=== PATIENT | female | born 1950 | race African-American/Black ===

== ENCOUNTER 2018-11-10 08:46 | Inpatient (IN) | payer OTHER ==
[2018-11-09 17:10] VITALS: BMI 43.0
[~2018-11-10] VITALS: Ht 162.6 cm; Wt 111.2 kg
[2018-11-10] VITALS (16 sets, daily range): BP systolic 123–155; BP diastolic 68–85; PULSE 83–102; RESP 13–24; Ht 162.6 cm; Wt 111.2 kg
[~2018-11-10 08:46] MED LIST: CEFAZOLIN 2 GM/50 ML (PMX) 50 ML IVPB ONE; DESFLURANE 15 MIN ONE; DEXAMETHASONE 10 MG/ML 1 ML INJ ONE; SOD CHLORIDE 0.9% 1,000 ML IV SCH
[2018-11-10] MEDS ORDERED: CALC1TAB79 PO (09:22)
[2018-11-10] MEDS ORDERED: ZONI100C48 PO (09:22)
[2018-11-10] MEDS ORDERED: OMEP20CA16 PO (09:22)
[2018-11-10] MEDS ORDERED: LEVE500T8 PO (09:23)
[2018-11-10] MEDS ORDERED: GABA300C16 PO (09:23)
[2018-11-10] MEDS ORDERED: QUET25TA33 PO (09:24)
[2018-11-10] MEDS ORDERED: BACL20TA PO (09:24)
[2018-11-10] MEDS ORDERED: ISOSULFAN BLUE 1% 5 ML INJ SC ONE (09:42)
--- NOTE | 2018-11-10 10:31 | PREAC ---
Date/Time of Note Date/Time of Note DATE: 11/10/18 TIME: 10:29 Anesthesia Eval and Record Evaluation Time Pre-Procedure Interview DATE: 11/10/18 TIME: 10:29 Age 68 Sex female NPO: 8 hrs Preoperative diagnosis Right Breast Cancer Planned procedure Right Breast Mastectomy Past Medical History Past Medical History: Includes Endo: Diabetes (borderline) Neuro: Seizure disorder GI: Obesity Surgery & Anesthesia Issues No known issue Meds Anticoagulation: No Beta Vivien within 24 hr: No Reason Beta Vivien not given: Pt. not on B-Vivien Reported Medications Quetiapine Fumarate* (Quetiapine Fumarate*) 25 Mg Tablet, 25 MG PO HS, TAB 11/10/18 Baclofen* (Baclofen*) 20 Mg Tablet, 20 MG PO Q8 PRN for INFLAMATION, TAB 11/10/18 Levetiracetam* (Levetiracetam*) 500 Mg Tablet, 500 MG PO BID, TAB 11/10/18 Gabapentin* (Gabapentin*) 300 Mg Capsule, 300 MG PO TID, #90 CAP 11/10/18 Omeprazole* (Omeprazole*) 20 Mg Capsule.dr, 20 MG PO DAILY, #30 CAP 11/10/18 Zonisamide* (Zonisamide*) 100 Mg Capsule, 100 MG PO DAILY, CAP 11/10/18 Calcium Carbonate/Vitamin D3 (Oysco 500+D Tablet) 1 Each Tablet, 1 EACH PO BID, TAB 11/10/18 Current Medications Sodium Chloride 1,000 ml @ 75 mls/hr [id number] IV ; Start 11/10/18 at 08:00; Stop 11/10/18 at 21:19 Meds reviewed: Yes Allergies Coded Allergies: Penicillins (Verified Allergy, Unknown, ITCHING, SWELLING OF TONGUE, 11/10/18) aspirin (Unverified Adverse Reaction, Unknown, STOMACH PAIN, 11/10/18) Allergies Reviewed: Yes Labs/Studies Labs Reviewed: Reviewed by anesthesiologist test: N/A Pre-procedure Exam Last vitals Vital Signs Date Temp Pulse Resp B/P (MAP) Pulse Ox O2 O2 Flow FiO2 Time Delivery Rate 11/10/18 97.3 83 18 136/74 94 Room Air 09:46 (94) Airway: Adequate mouth opening, Adequate thyromental dist Mallampati: Mallampati III Teeth: Normal Lung: Normal Heart: Normal ASA Physical Status ASA physical status: 3 Emergency: None Planned Anesthetic General/MAC: ETT Planned Pain Management Parenteral pain med Pre-operative Attestations Prior to commencing anesthesia and surgery, the patient was re-evaluated, there was verification of: *The patient's identity *The results of appropriate recent lab work and preoperative vital signs *The above evaluation not changing prior to induction *Anesthetic plan, risk benefits, alternative and complications discussed with patient/family; questions answered; patient/family understands, accepts and wishes to proceed. YORDAN SAHU MD Nov 10, 2018 10:30
[2018-11-10] MEDS ORDERED: PROPOFOL 20 ML ONE (10:33)
[2018-11-10] MEDS ORDERED: ROCURONIUM 50 MG INJ ONE (10:33)
[2018-11-10] MEDS ORDERED: CEFAZOLIN 1 GM INJ ONE (10:33)
[2018-11-10] MEDS ORDERED: MIDAZOLAM 1 MG/ML 2 ML INJ ONE (10:33)
[2018-11-10] MEDS ORDERED: ONDANSETRON 4 MG INJ ONE (10:42)
[2018-11-10] MEDS ORDERED: METOCLOPRAMIDE 10 MG INJ ONE (10:42)
[2018-11-10] MEDS ORDERED: DEXAMETHASONE 4 MG/ML 5 ML INJ ONE (10:42)
[2018-11-10] MEDS ORDERED: DIPHENHYDRAMINE 50 MG INJ IV PRN (11:00)
[2018-11-10] MEDS ORDERED: LABETALOL HCL 20MG INJ IV PRN (11:00)
[2018-11-10] MEDS ORDERED: ONDANSETRON 4 MG INJ IV PRN ×2 (11:00→12:00)
[2018-11-10] MEDS ORDERED: FENTAnyl 50 MCG/ML VIAL IV PRN ×3 (11:00)
[2018-11-10] MEDS ORDERED: OXYCODONE/ACETAMINOPHEN (5/325) TAB PO PRN ×2 (11:00)
[2018-11-10] MEDS ORDERED: MEPERIDINE 25 MG INJ IV PRN (11:00)
[2018-11-10] MEDS ORDERED: EPHEDrine SULFATE 50 MG/5 ML SYG IV PRN (11:00)
[2018-11-10] MEDS ORDERED: hydrALAzine 20 MG INJ IV PRN (11:00)
[2018-11-10] MEDS ORDERED: HYDROmorphONE 1 MG/5 ML IV SYRINGE IV PRN ×3 (11:00)
[2018-11-10] MEDS ORDERED: METOCLOPRAMIDE 10 MG INJ IV PRN (11:00)
--- NOTE | 2018-11-10 11:36 | SIPON ---
Date/Time of Note Date/Time of Note DATE: 11/10/18 TIME: 11:35 Operative Report Preoperative Diagnosis Recurrent cancer right breast Postoperative Diagnosis Same Operation/Procedure Performed Right modified radical mastectomy Surgeon see signature line bilingual medical assistant Dr Gann Second assist: LYNNE LOU MD Anesthesia: general Estimated blood loss: 10 - 50 ml's Transfusion Required none Specimen Right breast and axillary contents Grafts/Implants none Complications none MATEUS LANZA MD Nov 10, 2018 11:36
[2018-11-10] MEDS ORDERED: NEOSTIGMINE 3 MG/3 ML SYRINGE ONE (11:39)
[2018-11-10] MEDS ORDERED: GLYCOPYRROLATE 0.4 MG INJ ONE (11:39)
[2018-11-10] MEDS ORDERED: SUGAMMADEX SODIUM 200 MG/2 ML VIAL IV ONE (11:47)
--- NOTE | 2018-11-10 11:47 | OPR ---
DATE OF OPERATION: 11/10/2018 PREOPERATIVE DIAGNOSIS: Recurrent right breast cancer with open wound, nonhealing. POSTOPERATIVE DIAGNOSIS: Recurrent right breast cancer with open wound, nonhealing. OPERATION PERFORMED: Right modified radical mastectomy. ANESTHESIA: General. ANESTHESIOLOGIST: Jimmy Haq MD SURGEON: Indra Milton MD MACHINE SPRAYER: José Miguel Gann MD; Saadia Sheehan MD INDICATIONS FOR PROCEDURE: The patient is a 68-year-old female, first diagnosed with breast cancer in 2001 at another institution. At that time, she was treated with breast conservation surgery and radiation. She developed a recurrence slightly over a year ago and again was treated at another institution by another surgeon. For reasons that are unclear, she was treated with partial mastectomy and developed a nonhealing wound. She then saw Dr. Milton for a second opinion and I informed her that due to the fact that she had recurrent cancer in the same breast that she would best be treated with mastectomy, based on the fact that she has an open wound as well. The patient was anxious to proceed in this fashion. She consented and was scheduled for surgery. DESCRIPTION OF PROCEDURE: The patient was brought to the operating theater, placed under general anesthesia. The right breast and axillary region was prepped and draped in usual sterile fashion. Planned elliptical incision was made widely around the nipple areolar complex including the open wound. Subcutaneous tissue was dissected with cautery. The skin edges were elevated with Allis Lavaca clamps and skin flaps were created in sequential fashion using cautery, first superiorly to the clavicle, then medially to the sternal border, inferiorly to the inframammary fold and laterally until the latissimus dorsi muscle was identified throughout its course. Mastectomy then took place from medial to lateral using cautery. At the border of the pectoralis major muscle, the pectoralis minor muscle was identified. There was significant scar tissue due to the previous surgery. It was meticulously dissected using cautery. It was unclear if there were residual lymph nodes in this tissue but the entire tail of the axilla was resected en bloc with the specimen. Specimen was then transected, oriented, and sent for permanent pathologic analysis. The wound was irrigated. Residual bleeding was controlled with cautery. Two #10 flat Everett-Gonzalez drains were brought through the right mid axillary line and cut to size. One was laid over the pectoralis major muscle, the other was cut to size and laid within the axilla. Both drains were secured in place with a 2-0 nylon suture. The skin was then reapproximated with a deep dermal layer of 4-0 Vicryl sutures, followed by final skin approximation with skin ana. The patient tolerated the procedure well. The estimated blood loss was approximately 50 mL. There were no complications and the patient was transported in stable condition to the recovery room where circumferential compression dressing was applied. Dictated By: INDRA LEARY/IRLANDA Conf#: [id number] DID#: [id number] CHRIS
--- NOTE | 2018-11-10 11:59 | PAC ---
Date/Time of Note Date/Time of Note DATE: 11/10/18 TIME: 11:59 Post-Anesthesia Notes Post-Anesthesia Note Last documented vital signs Vital Signs Date Temp Pulse Resp B/P (MAP) Pulse Ox O2 O2 Flow FiO2 Time Delivery Rate 11/10/18 97.3 83 18 136/74 94 Room Air 12:16 (94) Activity: WNL Respiratory function: WNL Cardiovascular function: WNL Mental status: Baseline Pain reasonably controlled: Yes Hydration appropriate: Yes Nausea/Vomiting absent: Yes YORDAN SAHU MD Nov 10, 2018 11:59
[2018-11-10] MEDS ORDERED: D5W-0.45 NACL + KCL 20 MEQ 1,000 ML IV SCH (12:00)
[2018-11-10] MEDS ORDERED: morphine SULFATE/PF (2 MG/2 ML) SYG IV PRN (12:00)
[2018-11-10] MEDS ORDERED: ACETAMINOPHEN 1000MG/100ML IV 100 ML IVPB PRN (12:00)
--- NOTE | 2018-11-10 12:42 | HP ---
Date/Time of Note Date/Time of Note DATE: 11/10/18 TIME: 12:42 Assessment/Plan VTE Prophylaxis Risk score (from Nsg)>0 risk: 4 SCD applied (from Nsg): Yes Lines/Catheters IV Catheter Type (from Nrsg): Peripheral IV HPI/ROS Admit Date/Time Admit Date/Time Nov 10, 2018 at 11:38 PMH/Family/Social Past Medical History Medications Current Medications Hydromorphone HCl (Dilaudid) 0.2 mg PACU PRN IV MILD PAIN LEVEL 1-3; Start 11/10/18 at 11:00; Stop 11/10/18 at 15:00 Hydromorphone HCl (Dilaudid) 0.4 mg PACU PRN IV MODERATE PAIN LEVEL 4-6; Start 11/10/18 at 11:00; Stop 11/10/18 at 15:00 Hydromorphone HCl (Dilaudid) 0.6 mg PACU PRN IV SEVERE PAIN LEVEL 7-10; Start 11/10/18 at 11:00; Stop 11/10/18 at 15:00 Fentanyl (Sublimaze) 25 mcg PACU ORDER PRN IV MILD PAIN LEVEL 1-3; Start 11/10/18 at 11:00; Stop 11/10/18 at 15:00 Fentanyl (Sublimaze) 50 mcg PACU ORDER PRN IV MODERATE PAIN LEVEL 4-6 Last administered on 11/10/18at 12:09; Admin Dose 50 MCG; Start 11/10/18 at 11:00; Stop 11/10/18 at 15:00 Fentanyl (Sublimaze) 75 mcg PACU ORDER PRN IV SEVERE PAIN LEVEL 7-10; Start 11/10/18 at 11:00; Stop 11/10/18 at 15:00 Oxycodone/ Acetaminophen (Percocet (5/ 325)) 1 tab PACU ORDER PRN PO PAIN LEVEL 1-5; Start 11/10/18 at 11:00; Stop 11/10/18 at 15:00 Oxycodone/ Acetaminophen (Percocet (5/ 325)) 2 tab PACU ORDER PRN PO PAIN LEVEL 6-10; Start 11/10/18 at 11:00; Stop 11/10/18 at 15:00 Ondansetron HCl (Zofran Inj) 4 mg PACU ORDER PRN IV NAUSEA AND/OR VOMITING Last administered on 11/10/18at 12:10; Admin Dose 4 MG; Start 11/10/18 at 11:00; Stop 11/10/18 at 15:00 Metoclopramide HCl (Reglan) 10 mg PACU ORDER PRN IV NAUSEA AND/OR VOMITING; Start 11/10/18 at 11:00; Stop 11/10/18 at 15:00 Labetalol HCl (Labetalol) 5 mg PACU ORDER PRN IV ELEVATED BLOOD PRESSURE; Start 11/10/18 at 11:00; Stop 11/10/18 at 15:00 Hydralazine HCl (Apresoline) 5 mg PACU ORDER PRN IV ELEVATED BLOOD PRESSURE; Start 11/10/18 at 11:00; Stop 11/10/18 at 15:00 Ephedrine Sulfate 5 mg PACU ORDER PRN IV BLOOD PRESSURE SUPPORT; Start 11/10/18 at 11:00; Stop 11/10/18 at 15:00 Meperidine HCl (Demerol) 25 mg PACU ORDER PRN IV POST OPERATIVE SHIVERING; Start 11/10/18 at 11:00; Stop 11/10/18 at 15:00 Diphenhydramine HCl (Benadryl) 25 mg PACU ORDER PRN IV PRURITUS; Start 11/10/18 at 11:00; Stop 11/10/18 at 15:00 Ondansetron HCl (Zofran Inj) 4 mg Q6H PRN IV NAUSEA AND/OR VOMITING; Start 11/10/18 at 12:00 Potassium Chloride/Dextrose/ Sod Cl 1,000 ml @ 125 mls/hr Q8H IV ; Start 11/10/18 at 12:00 Morphine Sulfate (morphine SULFATE (PF)) 2 mg Q1H PRN IV PAIN; Start 11/10/18 at 12:00 Acetaminophen 100 ml @ 400 mls/hr Q6H PRN IVPB PAIN; Start 11/10/18 at 12:00; Stop 11/11/18 at 11:59 Coded Allergies: Penicillins (Verified Allergy, Unknown, ITCHING, SWELLING OF TONGUE, 11/10/18) aspirin (Unverified Adverse Reaction, Unknown, STOMACH PAIN, 11/10/18) Social History Smoking Status: Current every day smoker Exam/Review of Systems Vital Signs Vitals Vital Signs Date Temp Pulse Resp B/P (MAP) Pulse Ox O2 O2 Flow FiO2 Time Delivery Rate 11/10/18 88 16 149/69 100 Nasal 4.0 12:32 (95) Cannula 11/10/18 98.6 12:03 BUDDY BERTRAND Nov 10, 2018 12:42
[2018-11-10] MEDS ORDERED: BACLOFEN 10 MG TAB PO PRN (16:00)
[2018-11-10] MEDS ORDERED: ONDANSETRON 4 MG TAB PO PRN (16:00)
--- NOTE | 2018-11-10 16:00 | QN ---
Documentation Comment SEEN AND EXAMINED WILLIAN CARRANZA MD Nov 10, 2018 16:00
--- NOTE | 2018-11-10 18:47 | HP ---
DATE OF ADMISSION: 11/10/2018 REASON FOR ADMISSION: The patient is admitted electively by Dr. Milton for right mastectomy. HISTORY OF PRESENTING ILLNESS: This is a 68-year-old female with a past medical history of chronic p ain, history of seizures, glaucoma, hep C, history of breast cancer which was diagnosed in the right breast in 2001. At that time, she went breast conservation surgery, then also had a second cancer de veloped in the same breast for reasons that are not clear. She underwent partial meniscectomy with a dequate margins. Subsequently, she was taken back for reexcision and clear margins were obtained and the patient was referred for external beam radiation and underwent radiation, but now presented with a large fungating mass in the right breast. She was seen by Dr. Milton and was admitted electively f or a right mastectomy. Currently, the patient has [address] and the pain has been control led. PAST MEDICAL HISTORY: 1. Hypertension. 2. Diabetes. 3. Arthritis. 4. Hep C. 5. Depression. ALLERGIES: 1. ASPIRIN. 2. PENICILLIN. PAST SURGICAL HISTORY: Cholecystectomy, breast surgeries. MEDICATIONS: Taking at home are: 1. Baclofen 20 mg p.o. q.8 p.r.n. pain. 2. Gabapentin 300 t.i.d. 3. Keppra 500 b.i.d. 4. Quetiapine 25 at bedtime. 5. Zonisamide 100 daily. 6. Calcium Os-Davi. 7. Prilosec 20. SOCIAL HISTORY: Smokes 3 cigarettes per day. Occasionally drinks alcohol. FAMILY HISTORY: Significant for cancer in the family. REVIEW OF SYSTEMS: The patient has [address] on the right breast, status post mastectomy. Denies any chest pain, any shortness of breath, any abdominal pain, nausea, vomiting, diarrhea. De nies any headache, any blurry vision. The patient suffers from chronic lower extremity edema. LABORATORY DATA: At outside hospital showed white count of 6.9, hemoglobin of 14.2. BMP was within normal limit. BUN of 12, creatinine 0.88. ASSESSMENT AND PLAN: This is a 68-year-old female who presented with: 1. Postoperative status post right mastectomy with history of right breast cancer. The patient had open wound on the right breast when she had a partial mastectomy. 2. Hypertension. 3. Borderline diabetes. 4. Arthritis. 5. Hepatitis C. 6. History of seizure disorder. 7. Depression. PLAN: At this period of time, the patient is admitted to med/surg unit. The patient is on pain cont rol. We will continue the patient on all home medications. Dr. Milton is following the patient. We will continue to monitor the RAMONITA drain. Rest of the treatment will depend on the hospitalization cour se. Dictated By: WILLIAN BACA/IRLANDA Conf#: [id number] DID#: [id number] CC: MATEUS MILTON MD; BENJI LAMB MD;*End*
[2018-11-10] MEDS: CALCIUM/VITAMIN D (500/200) TAB PO SCH (21:00)
[2018-11-10] MEDS: LEVETIRACETAM 500 MG TAB PO SCH (21:00)
[2018-11-10] MEDS: QUETIAPINE 25 MG TAB PO SCH (21:01)
[2018-11-10] MEDS: GABAPENTIN 300 MG CAP PO SCH (21:01)
[2018-11-10] MEDS: ACETAMINOPHEN 325 MG TAB PO PRN (23:00)
[2018-11-11 01:28] VITALS: BP 121/63; PULSE 87; RESP 18
[2018-11-11] MEDS: PANTOPRAZOLE (EC) 40 MG TAB PO SCH (05:57)
[2018-11-11] MEDS ORDERED: PANTOPRAZOLE (EC) 40 MG TAB PO SCH (06:00)
[2018-11-11 08:12] VITALS: BP 103/95; PULSE 75; RESP 18
[2018-11-11] MEDS: GABAPENTIN 300 MG CAP PO SCH ×3 (09:04→21:27)
[2018-11-11] MEDS: LEVETIRACETAM 500 MG TAB PO SCH ×2 (09:04→21:27)
[2018-11-11] MEDS: ZONISAMIDE 100 MG CAP PO SCH (09:04)
[2018-11-11] MEDS: CALCIUM/VITAMIN D (500/200) TAB PO SCH ×2 (09:04→21:27)
[2018-11-11] MEDS: ACETAMINOPHEN 325 MG TAB PO PRN ×2 (09:07→18:31)
--- NOTE | 2018-11-11 09:45 | PN ---
Date/Time of Note Date/Time of Note DATE: 11/11/18 TIME: 09:43 Assessment/Plan VTE Prophylaxis Risk score (from Ns)>0 risk: 6 SCD applied (from [facility]): Yes Pharmacological prophylaxis: NA/contraindicated Pharm contraindication: surgical contra Lines/Catheters IV Catheter Type (from [facility]): Peripheral IV Assessment/Plan Hospital Course 1. Postoperative status post right mastectomy with history of right breast cancer. The patient had open wound on the right breast when she had a partial mastectomy. 2. Hypertension. 3. Borderline diabetes. 4. Arthritis. 5. Hepatitis C. 6. History of seizure disorder. 7. Depression. Assessment/Plan - med/surg unit. -c/w pain control. -c/w on all home medications. -surgical consult Dr. Milton -DVT prophylaxis SCD _GI prophylaxis Protonix -possible dc today Result Diagram: 11/11/1844811/11/189 Results 24hrs Laboratory Tests Test 11/11/18 04:49 White Blood Count 11.4 H Red Blood Count 4.55 Hemoglobin 12.9 Hematocrit 36.5 L Mean Corpuscular Volume 80.2 L Mean Corpuscular Hemoglobin 28.4 L Mean Corpuscular Hemoglobin Concent 35.3 Red Cell Distribution Width 14.3 Platelet Count 154 Mean Platelet Volume 12.5 H Immature Granulocytes % 0.400 Neutrophils % 86.6 H Lymphocytes % 8.1 L Monocytes % 4.8 Eosinophils % 0.0 Basophils % 0.1 Nucleated Red Blood Cells % 0.0 Immature Granulocytes # 0.040 H Neutrophils # 9.8 H Lymphocytes # 0.9 Monocytes # 0.5 Eosinophils # 0.0 Basophils # 0.0 Nucleated Red Blood Cells # 0.0 Sodium Level 141 Potassium Level 4.6 Chloride Level 107 Carbon Dioxide Level 29 Anion Gap 10 Blood Urea Nitrogen 12 Creatinine 0.75 Est Glomerular Filtrat Rate mL/min > 60 Glucose Level 147 Calcium Level 9.7 Phosphorus Level 3.7 Magnesium Level 2.0 Subjective 24 Hr Interval Summary Constitutional: no complaints, improved Gastrointestinal: no complaints, pain, blood, constipation, decreased appetite, diarrhea, flatus, nausea, passing stool, vomiting, other Musculoskeletal: back pain; No no complaints, No bone/joint pain, No neck pain, No restricted range of motion, No swelling, No other Exam/Review of Systems Vital Signs Vitals Vital Signs Date Temp Pulse Resp B/P (MAP) Pulse Ox O2 O2 Flow FiO2 Time Delivery Rate 11/11/18 98.3 75 18 103/95 96 Room Air 08:12 (98) 11/10/18 4.0 12:32 Intake and Output 11/10/18 11/10/18 11/11/18 1515:00 23:00 07:00 IntakeIntake Total 650 ml OutputOutput Total 54 ml 50 ml BalanceBalance 596 ml -50 ml Exam right breast surgical wound and RAMONITA Constitutional: alert, oriented ENMT: nl external ears & nose Neck: supple Respiratory: clear to auscultation Cardiovascular: regular rate and rhythm Gastrointestinal: soft Medications Medications Current Medications Ondansetron HCl (Zofran Inj) 4 mg Q6H PRN IV NAUSEA AND/OR VOMITING; Start 11/10/18 at 12:00 Morphine Sulfate (morphine SULFATE (PF)) 2 mg Q1H PRN IV PAIN; Start 11/10/18 at 12:00 Acetaminophen 100 ml @ 400 mls/hr Q6H PRN IVPB PAIN; Start 11/10/18 at 12:00; Stop 11/11/18 at 11:59 Ondansetron HCl (Zofran Tab) 4 mg Q6H PRN PO NAUSEA AND/OR VOMITING; Start 11/10/18 at 16:00 Pantoprazole (Protonix Tab) 40 mg DAILY@06 PO Last administered on 11/11/18at 05:57; Admin Dose 40 MG; Start 11/11/18 at 06:00 Baclofen (Lioresal) 20 mg Q8 PRN PO MUSCLE SPASMS; Start 11/10/18 at 16:00 Calcium/Vitamin D (Oyster Shell/ Vit-D (500/200)) 1 tab BID PO Last administered on 11/11/18at 09:04; Admin Dose 1 TAB; Start 11/10/18 at 21:00 Gabapentin (Neurontin) 300 mg TID PO Last administered on 11/11/18at 09:04; Admin Dose 300 MG; Start 11/10/18 at 21:00 Levetiracetam (Keppra) 500 mg BID PO Last administered on 11/11/18at 09:04; Admin Dose 500 MG; Start 11/10/18 at 21:00 Quetiapine Fumarate (Seroquel) 25 mg QHS PO Last administered on 11/10/18at 21:01; Admin Dose 25 MG; Start 11/10/18 at 21:00 Zonisamide (Zonegran) 100 mg DAILY PO Last administered on 11/11/18 09:04; Admin Dose 100 MG; Start 11/11/18 at 09:00 Acetaminophen (Tylenol Tab) 650 mg Q6H PRN PO MILD PAIN(1-3)OR ELEVATED TEMP Last administered on 11/11/18 09:07; Admin Dose 650 MG; Start 11/10/18 at 23:00 BUDDY BERTRAND Nov 11, 2018 09:45
[2018-11-11 14:00] VITALS: BP 121/69; PULSE 87; RESP 17
--- NOTE | 2018-11-11 19:39 | PN ---
DATE: 11/11/2018 Postop day #1 status post right breast modified radical mastectomy. SUBJECTIVE: Complaining of some nausea and also a lot of pain which, of course, can be controlled wi th pain medication. OBJECTIVE: GENERAL: Alert, awake, oriented. VITAL SIGNS: Temperature maximum 98.3, heart rate 87, respirations 18, blood pressure has been recor ded 121/69, saturation 96% on room air. Labs: WBC 11,400, elevated, with shift to the left 86.6%. Hemoglobin 12.9, hematocrit 36.5 today. Chemistry: Sodium, potassium, BUN, creatinine within normal limits. HEART: Regular. LUNGS: Clear. Dressing is intact, around dressing is not too tight to Everett-Gonzalez drain. The content of the [place] son-Gonzalez drain bulb is bloody fluid, actually is blood. The amount of drainage from time of operati on, which was yesterday afternoon, until 7:00 a.m. today totally is 84 mL, which has been blood, and right now also the fluid, from 7:00 a.m. until now, which is 8:00 p.m., is 30 mL and 40 mL fluid, whi ch is more bloody than serosanguineous. PLAN: Considering that the patient also has had a big operation and the drainage is bloody and the p ain is not under control and the patient has some nausea, we prefer to keep the patient overnight for better control, and hopefully we can discharge her tomorrow. Dictated By: DEVIN WEAVER MD PS/NTS Conf#: [id number] DID#: [id number] CC: MATEUS LANZA MD;*EndCC*
[2018-11-11 20:07] VITALS: BP 106/56; PULSE 74; RESP 18
[2018-11-11] MEDS: QUETIAPINE 25 MG TAB PO SCH (21:27)
[2018-11-12 02:00] VITALS: BP 105/58; PULSE 78; RESP 18
[2018-11-12] MEDS: PANTOPRAZOLE (EC) 40 MG TAB PO SCH (05:51)
[2018-11-12] MEDS: ACETAMINOPHEN 325 MG TAB PO PRN (05:51)
[2018-11-12] MEDS: LEVETIRACETAM 500 MG TAB PO SCH (08:14)
[2018-11-12] MEDS: CALCIUM/VITAMIN D (500/200) TAB PO SCH (08:16)
[2018-11-12] MEDS: ZONISAMIDE 100 MG CAP PO SCH (08:16)
[2018-11-12] MEDS: GABAPENTIN 300 MG CAP PO SCH ×2 (08:16→12:33)
[2018-11-12 08:44] VITALS: BP 124/73; PULSE 76; RESP 18
--- NOTE | 2018-11-12 15:08 | PN ---
DATE: 11/12/2018 Postop day #2 status post right breast modified radical mastectomy. SUBJECTIVE: Feels much better. OBJECTIVE: GENERAL: Awake, alert, oriented x3. VITAL SIGNS: No fever. Heart rate 76, respiratory rate 18, blood pressure 124/73, saturation 99% on room air. EXTREMITIES: The patient can move or both upper extremities in full range. INPUT AND OUTPUT: Drainage in past 24hours from 2 Everett-Gonzalez total has been 140 mL. The color is more towards serosanguineous now. PLAN: The patient is stable and can discharge home today to be followed by Dr. Milton' office. She h as made appointment on 11/28/2018. The instruction for care of the Everett-Gonzalez drains was given to the patient and then the patient to drain them every night and record the amount of drainage on a pi monica of paper and take it to the office of Dr. Milton when she goes there. All the questions were answ ered. The patient wants only Tylenol regular strength for the pain. Dictated By: DEVIN WEAVER MD PS/NTS Conf#: [id number] DID#: [id number] CC: MATEUS MILTON MD; BENJI LAMB MD;*End*
[2018-11-12 15:27] VITALS: BP 120/60; PULSE 79; RESP 18
--- NOTE | 2018-11-12 17:36 | PDOCDIS ---
Discharge Instructions CONDITION [id number] Patient Condition: [id number] Stable HOME CARE INSTRUCTIONS: [id number] Special Diet: Iuxqk4m regular ACTIVITY: [id number] Activity Restrictions: [id number] Slowly Increase Activity FOLLOW UP/APPOINTMENTS Follow-up Plan F/U OWN PCP [address] LANZA 1 WK ALEJO VALDEZ MD Nov 12, 2018 17:36
[2018-11-12] MEDS ORDERED: ACET325T33 PO (17:37)
--- NOTE | 2018-11-12 17:40 | QN ---
Documentation Comment [id number] ALEJO VALDEZ MD Nov 12, 2018 17:40
--- NOTE | 2018-11-12 18:47 | DS ---
DATE OF ADMISSION: 11/10/2018 DATE OF DISCHARGE: 11/12/2018 HOSPITAL COURSE: She is a 68-year-old female who was admitted by Dr. Milton. The patient has breast cancer, history of seizure disorder, has a left modified radical mastectomy. The patient was followe d closely by Dr. Milton and Dr. Gann. The patient has RAMONITA drainage, which is . The patient was instructed how to use RAMONITA drainage. Dr. Gann cleared this patient to be discharged and follow up a s an outpatient. DISCHARGE DIAGNOSES: 1. Recurrent left breast cancer with open wound. 2. Nonhealing left modified radical mastectomy. 3. The patient has anemia, stable. MEDICATIONS: The patient to continue home medications which include: 1. Baclofen. 2. Calcium carbonate. 3. Gabapentin. 4. Keppra. 5. Omeprazole. 6. Seroquel. 7. Zonisamide. 8. Tylenol. FOLLOWUP: The patient is follow with primary care doctor, Dr. Gann, Dr. Milton as an outpatient. CONDITION: The patient is stable at the time of discharge. Dictated By: ALEJO VALDEZ MD BS/NTS Conf#: [id number] DID#: [id number] CC: BENJI LAMB MD; MATEUS MILTON MD;*End*
== END 2018-11-12 17:57 | disposition home or self-care (01) | DRG 583 ==
LOC: SDS 08:46 → REC 11:38 → SDS 11:38 → PP2 13:36
PROVIDERS: ADMIT Surgery Surgical Oncology; ATTEND Surgery Surgical Oncology
PROC: 0HTT0ZZ Resection of Right Breast, Open Approach (ICD-10-PCS; principal; 2018-11-10 11:00)
DX: C50.911 Malignant neoplasm of unspecified site of right female breast (principal); T81.89XA Other complications of procedures, not elsewhere classified, initial encounter; S21.001A Unspecified open wound of right breast, initial encounter; I10 Essential (primary) hypertension; E11.9 Type 2 diabetes mellitus without complications; B18.2 Chronic viral hepatitis C; F32.9 Major depressive disorder, single episode, unspecified; Z88.6 Allergy status to analgesic agent; Z88.0 Allergy status to penicillin; F17.210 Nicotine dependence, cigarettes, uncomplicated; G40.909 Epilepsy, unspecified, not intractable, without status epilepticus; Z92.3 Personal history of irradiation; D64.9 Anemia, unspecified; Y83.8 Other surgical procedures as the cause of abnormal reaction of the patient, or of later complication, without mention of misadventure at the time of the procedure
CPT/HCPCS: 80048; 83735; 84100; 85025; 88307; J0690; J1100; J1170; J2250; J2405; J2710; J2765; J3010; J3480; Q9968

== ENCOUNTER 2019-04-06 06:59 | Observation (INO) | payer OTHER ==
[2019-04-06] VITALS (24 sets, daily range): BP systolic 68–147; BP diastolic 36–76; PULSE 75–112; RESP 15–22; Ht 162.6 cm; Wt 110.1 kg
[~2019-04-06] VITALS: Ht 162.6 cm; Wt 110.1 kg
[~2019-04-06 06:59] MED LIST changes: +ACET325T33 PO; +BACL20TA PO; +CALC1TAB79 PO; -CEFAZOLIN 2 GM/50 ML (PMX) 50 ML IVPB ONE; -DESFLURANE 15 MIN ONE; -DEXAMETHASONE 10 MG/ML 1 ML INJ ONE; +GABA300C16 PO; +LEVE500T8 PO; +OMEP20CA16 PO; +QUET25TA33 PO; -SOD CHLORIDE 0.9% 1,000 ML IV SCH; +ZONI100C48 PO
[2019-04-06] MEDS ORDERED: SOD CHLORIDE 0.9% 1,000 ML IV SCH ×2 (07:00→11:30)
[2019-04-06] MEDS ORDERED: PROPOFOL 200 MG INJ ONE (07:00)
[2019-04-06] MEDS ORDERED: ROCURONIUM 50 MG INJ ONE (07:00)
[2019-04-06] MEDS ORDERED: ANAS1TAB PO (08:18)
--- NOTE | 2019-04-06 09:09 | PREAC ---
Date/Time of Note Date/Time of Note DATE: 04/06/19 TIME: 09:06 Anesthesia Eval and Record Evaluation Time Pre-Procedure Interview DATE: 04/06/19 TIME: 09:06 Age 68 Sex female NPO: 8 hrs Preoperative diagnosis breast abcess Planned procedure i &d breast Past Medical History Past Medical History: Includes Cardio: HTN Endo: Diabetes Neuro: Seizure disorder Infection(s): Hep C Surgery & Anesthesia Issues No known issue Meds Anticoagulation: No Beta Vivien within 24 hr: No Reason Beta Vivien not given: Pt. not on B-Vivien Reported Medications Anastrozole* (Arimidex*) 1 Mg Tablet, 1 MG PO DAILY, #30 TAB 04/06/19 Baclofen* (Baclofen*) 20 Mg Tablet, 20 MG PO Q8 PRN for INFLAMATION, TAB 11/10/18 Levetiracetam* (Levetiracetam*) 500 Mg Tablet, 500 MG PO BID, TAB 11/10/18 Gabapentin* (Gabapentin*) 300 Mg Capsule, 300 MG PO TID, #90 CAP 11/10/18 Zonisamide* (Zonisamide*) 100 Mg Capsule, 100 MG PO DAILY, CAP 11/10/18 Calcium Carbonate/Vitamin D3 (Oysco 500+D Tablet) 1 Each Tablet, 1 EACH PO BID, TAB 11/10/18 Discontinued Reported Medications Quetiapine Fumarate* (Quetiapine Fumarate*) 25 Mg Tablet, 25 MG PO HS, TAB 11/10/18 Omeprazole* (Omeprazole*) 20 Mg Capsule.dr, 20 MG PO DAILY, #30 CAP 11/10/18 Discontinued Scripts Acetaminophen* (Tylenol*) 325 Mg Tablet, 650 MG PO Q6H PRN for MILD PAIN(1-3)OR ELEVATED TEMP for 7 Days, TAB Prov:ALEJO VALDEZ MD 11/12/18 Current Medications Sodium Chloride 1,000 ml @ 75 mls/hr [id number] IV ; Start 04/06/19 at 07:00; Stop 04/06/19 at 20:19 Meds reviewed: Yes Allergies Coded Allergies: Penicillins (Verified Allergy, Unknown, ITCHING, SWELLING OF TONGUE, 04/06/19) aspirin (Unverified Adverse Reaction, Unknown, STOMACH PAIN, 04/06/19) Allergies Reviewed: Yes Labs/Studies Labs Reviewed: Reviewed by anesthesiologist test: N/A Pre-procedure Exam Last vitals Vital Signs Date Temp Pulse Resp B/P (MAP) Pulse Ox O2 O2 Flow FiO2 Time Delivery Rate 04/06/19 97.8 75 18 147/76 95 Room Air 08:58 (99) Airway: Adequate mouth opening Mallampati: Mallampati I Teeth: Normal Lung: Normal Heart: Normal ASA Physical Status ASA physical status: 2 Emergency: None Planned Anesthetic General/MAC: ETT Pre-operative Attestations Prior to commencing anesthesia and surgery, the patient was re-evaluated, there was verification of: *The patient's identity *The results of appropriate recent lab work and preoperative vital signs *The above evaluation not changing prior to induction *Anesthetic plan, risk benefits, alternative and complications discussed with patient/family; questions answered; patient/family understands, accepts and wishes to proceed. HAZEL NUÑEZ MD April 06, 2019 09:09
[2019-04-06] MEDS ORDERED: ETOMIDATE 20 MG INJ ONE (09:16)
[2019-04-06] MEDS ORDERED: SUCCINYLCHOLINE CHLORIDE 100 MG/5 ML SYG IV ONE (09:16)
[2019-04-06] MEDS ORDERED: HYDROmorphONE 2 MG/ML SYG ONE (09:17)
[2019-04-06] MEDS ORDERED: CLINDAMYCIN 600 MG/D5W (PMX) 50 ML IVPB ONE (09:27)
[2019-04-06] MEDS ORDERED: hydrALAzine 20 MG INJ ONE (09:29)
[2019-04-06] MEDS ORDERED: HYDROmorphONE 1 MG/5 ML IV SYRINGE IV PRN ×4 (09:30→10:30)
[2019-04-06] MEDS ORDERED: MEPERIDINE 25 MG INJ IV PRN ×2 (09:30→10:30)
[2019-04-06] MEDS ORDERED: ONDANSETRON 4 MG INJ IV PRN ×2 (09:30→10:30)
[2019-04-06] MEDS ORDERED: LABETALOL HCL 20MG INJ IV PRN ×2 (09:30→10:30)
[2019-04-06] MEDS ORDERED: hydrALAzine 20 MG INJ IV PRN ×2 (09:30→10:30)
[2019-04-06] MEDS ORDERED: MIDAZOLAM 1 MG/ML 2 ML INJ ONE (09:44)
[2019-04-06] MEDS ORDERED: SUGAMMADEX SODIUM 200 MG/2 ML VIAL IV ONE (10:00)
--- NOTE | 2019-04-06 10:04 | SIPON ---
Date/Time of Note Date/Time of Note DATE: 04/06/19 TIME: 10:03 Operative Report Preoperative Diagnosis Right chest wall abscess Postoperative Diagnosis Same Operation/Procedure Performed I&D of right chest wall abscess Surgeon see signature line assisted sales representative Dr spring Anesthesia: general Estimated blood loss: 10 - 50 ml's Transfusion Required none Specimen Wound cultures Grafts/Implants none Complications none MATEUS LANZA MD April 06, 2019 10:04
--- NOTE | 2019-04-06 10:31 | PAC ---
Date/Time of Note Date/Time of Note DATE: 04/06/19 TIME: 10:31 Post-Anesthesia Notes Post-Anesthesia Note Last documented vital signs Vital Signs Date Temp Pulse Resp B/P (MAP) Pulse Ox O2 O2 Flow FiO2 Time Delivery Rate 04/06/19 97.2 10:28 04/06/19 75 18 147/76 95 Room Air 08:58 (99) Activity: WNL Respiratory function: WNL Cardiovascular function: WNL Mental status: Baseline Pain reasonably controlled: Yes Hydration appropriate: Yes Nausea/Vomiting absent: Yes HAZEL NUÑEZ MD April 06, 2019 10:31
[2019-04-06] MEDS ORDERED: EPHEDrine 25 MG/5 ML SYG ONE (11:03)
[2019-04-06] MEDS ORDERED: EPHEDrine 25 MG/5 ML SYG IV PRN ×3 (11:30→12:00)
[2019-04-06] MEDS ORDERED: PHENYLephrine 20MG IN 250 ML 250 ML IV ONE ×2 (12:00→12:30)
--- NOTE | 2019-04-06 12:36 | OPPN ---
Date/Time of Note Date/Time of Note DATE: 04/06/19 TIME: 12:32 Event Note patient is hypotensive in pacu , she is awake /concious /oriented but hypotensive , her ekg is wnl , i have ordered cardiac enzymes and asked the primary / hospitalist dr lynch to come and evaluate her for admission /management HAZEL NUÑEZ MD April 06, 2019 12:36
--- NOTE | 2019-04-06 13:00 | CONS ---
Assessment/Plan Assessment/Plan Hospital Course (Demo Recall) 68 yo female who is POD0 in PACU for I and D of breast, I was called to evaluate hypotension - Hypotension is now resolved - She is completely asymptomatic and wants to go home - i do not suspect sepsis or any kind of shock - I would monitor her in PACU another couple hour and if remains stable ok to discharge to home - Call me back if clinical situation changes Consultation Date/Type/Reason Admit Date/Time April 06, 2019 at 11:48 Date/Time of Note DATE: 04/06/19 TIME: 12:57 Hx of Present Illness 68 yo female in PACU who is just out of the OR following I and D of breast She had been hypotensive following surgery and I was asked to evaluate her At the time of my evaluation her BP is 165/80. I asked if she is having any symptoms. She says she feels completely nomral and she wants to go home Constitutional: no complaints, improved Eyes: no complaints ENT: no complaints Respiratory: no complaints Cardiovascular: no complaints Gastrointestinal: no complaints Genitourinary: no complaints Musculoskeletal: no complaints Skin: no complaints Neurologic: no complaints Endocrine: no complaints Lymphatic: no complaints Psychological: no complaints, nl mood/affect Immunologic: no complaints Past Medical History Home Meds Reported Medications Anastrozole* (Arimidex*) 1 Mg Tablet, 1 MG PO DAILY, #30 TAB 04/06/19 Baclofen* (Baclofen*) 20 Mg Tablet, 20 MG PO Q8 PRN for INFLAMATION, TAB 11/10/18 Levetiracetam* (Levetiracetam*) 500 Mg Tablet, 500 MG PO BID, TAB 11/10/18 Gabapentin* (Gabapentin*) 300 Mg Capsule, 300 MG PO TID, #90 CAP 11/10/18 Zonisamide* (Zonisamide*) 100 Mg Capsule, 100 MG PO DAILY, CAP 11/10/18 Calcium Carbonate/Vitamin D3 ([place] 500+D Tablet) 1 Each Tablet, 1 EACH PO BID, TAB 11/10/18 Discontinued Reported Medications Quetiapine Fumarate* (Quetiapine Fumarate*) 25 Mg Tablet, 25 MG PO HS, TAB 11/10/18 Omeprazole* (Omeprazole*) 20 Mg Capsule.dr, 20 MG PO DAILY, #30 CAP 11/10/18 Discontinued Scripts Acetaminophen* (Tylenol*) 325 Mg Tablet, 650 MG PO Q6H PRN for MILD PAIN(1-3)OR ELEVATED TEMP for 7 Days, TAB Prov:ALEJO VALDEZ MD 11/12/18 Medications Current Medications Sodium Chloride 1,000 ml @ 75 mls/hr [id number] IV ; Start 04/06/19 at 07:00; Stop 04/06/19 at 20:19 Hydromorphone HCl (Dilaudid) 0.2 mg PACU PRN IV MILD PAIN 1-3; Start 04/06/19 at 09:30; Stop 04/06/19 at 13:30 Hydromorphone HCl (Dilaudid) 0.4 mg PACU PRN IV MOD PAIN 4-6; Start 04/06/19 at 09:30; Stop 04/06/19 at 13:30 Ondansetron HCl (Zofran Inj) 4 mg PACU ORDER PRN IV NAUSEA/VOMITING; Start 04/06/19 at 09:30; Stop 04/06/19 at 13:30 Labetalol HCl (Labetalol) 5 mg PACU ORDER PRN IV HIGH BLOOD PRESSURE; Start 04/06/19 at 09:30; Stop 04/06/19 at 13:30 Hydralazine HCl (Apresoline) 5 mg PACU ORDER PRN IV HIGH BLOOD PRESSURE; Start 04/06/19 at 09:30; Stop 04/06/19 at 13:30 Meperidine HCl (Demerol) 25 mg PACU ORDER PRN IV .RIGORS; Start 04/06/19 at 09:30; Stop 04/06/19 at 13:30 Ephedrine Sulfate 25 mg PACU ORDER PRN IV BLOOD PRESSURE SUPPORT Last administered on 04/06/19at 11:22; Admin Dose 25 MG; Start 04/06/19 at 11:30; Stop 04/06/19 at 16:00 Ephedrine Sulfate 5 mg PACU ORDER PRN IV BLOOD PRESSURE SUPPORT Last administered on 04/06/19at 12:47; Admin Dose 5 MG; Start 04/06/19 at 12:00; Stop 04/06/19 at 16:00 Allergies: Coded Allergies: Penicillins (Verified Allergy, Unknown, ITCHING, SWELLING OF TONGUE, 04/06/19) aspirin (Unverified Adverse Reaction, Unknown, STOMACH PAIN, 04/06/19) Past Surgical History I and D of breast Past Surgical Hx: no surgical history Social History Alcohol Use: none Smoking Status: Current every day smoker Drug Use: none Exam/Review of Systems Exam Vitals Vital Signs Date Temp Pulse Resp B/P (MAP) Pulse Ox O2 O2 Flow FiO2 Time Delivery Rate 04/06/19 108 16 85/42 (56) 100 Nasal 2.0 11:30 Cannula 04/06/19 97.2 10:28 Constitutional: alert, oriented, well developed Psych: no complaints, nl mood/affect Head: normocephalic, atraumatic Eyes: nl conjunctiva, EOMI, nl lids, nl sclera, PERRL ENMT: nl external ears & nose, nl lips & teeth, nl nasal mucosa & septum Neck: supple, non-tender Respiratory: clear to auscultation, normal air movement Cardiovascular: regular rate and rhythm, nl pulses Gastrointestinal: soft, nl liver, spleen, non-tender Musculoskeletal: nl extremities to inspection, nl gait and stance Extremities: normal pulses Neurological: CLINICAL PATHOLOGIST II-XII intact, nl mental status, nl speech, nl strength Skin: nl turgor; No rash or lesions Lymph: nl lymph nodes Results Results 24hrs Laboratory Tests Test 04/06/19 12:06 Creatine Kinase 70 Creatine Kinase Index 0.3 Creatinine Kinase MB (Mass) < 0.22 Troponin I < 0.012 Medications Medication Current Medications Sodium Chloride 1,000 ml @ 75 mls/hr [id number] IV ; Start 04/06/19 at 07:00; Stop 04/06/19 at 20:19 Hydromorphone HCl (Dilaudid) 0.2 mg PACU PRN IV MILD PAIN 1-3; Start 04/06/19 at 09:30; Stop 04/06/19 at 13:30 Hydromorphone HCl (Dilaudid) 0.4 mg PACU PRN IV MOD PAIN 4-6; Start 04/06/19 at 09:30; Stop 04/06/19 at 13:30 Ondansetron HCl (Zofran Inj) 4 mg PACU ORDER PRN IV NAUSEA/VOMITING; Start 04/06/19 at 09:30; Stop 04/06/19 at 13:30 Labetalol HCl (Labetalol) 5 mg PACU ORDER PRN IV HIGH BLOOD PRESSURE; Start 04/06/19 at 09:30; Stop 04/06/19 at 13:30 Hydralazine HCl (Apresoline) 5 mg PACU ORDER PRN IV HIGH BLOOD PRESSURE; Start 04/06/19 at 09:30; Stop 04/06/19 at 13:30 Meperidine HCl (Demerol) 25 mg PACU ORDER PRN IV .RIGORS; Start 04/06/19 at 09: 30; Stop 04/06/19 at 13:30 Ephedrine Sulfate 25 mg PACU ORDER PRN IV BLOOD PRESSURE SUPPORT Last administered on 04/06/19at 11:22; Admin Dose 25 MG; Start 04/06/19 at 11:30; Stop 04/06/19 at 16:00 Ephedrine Sulfate 5 mg PACU ORDER PRN IV BLOOD PRESSURE SUPPORT Last administered on 04/06/19at 12:47; Admin Dose 5 MG; Start 04/06/19 at 12:00; Stop 04/06/19 at 16:00 CHELLY MORTON MD April 06, 2019 13:00
--- NOTE | 2019-04-06 14:26 | OPR ---
DATE OF OPERATION: 04/06/2019 PREOPERATIVE DIAGNOSES: 1. Status post right modified radical mastectomy. 2. Persistent wound abscess. POSTOPERATIVE DIAGNOSES: 1. Status post right modified radical mastectomy. 2. Persistent wound abscess. PROCEDURE: Incision and drainage of infected right chest wall wound. ANESTHESIA: General. ANESTHESIOLOGIST: Wang Gutierrez MD SURGEON: Indra Milton MD STRADDLE TRUCK OPERATOR: Saadia Sheehan MD INDICATIONS FOR PROCEDURE: The patient is a 68-year-old female previously treated for right breast c ancer with modified radical mastectomy, presents with a persistent drainage from the lateral aspect o f her mastectomy incision. She failed attempts at local wound care. She was then counseled on the n eed for definitive incision and drainage. She consented and was scheduled for surgery. DESCRIPTION OF PROCEDURE: The patient was brought to the operating theater, placed under general ane sthesia. The right chest wall was prepped and draped in usual sterile fashion. The fluctuant area o avi the site of the drainage near small opening of the skin was incised widely with 15 -lade scalpel. Necrotic tissue was then sharply debrided. With all necrotic tissue removed, the wound was irrigat ed and bleeding was controlled with cautery. The wound was then irrigated with both hydrogen peroxid e and Betadine and then packed with wet to dry dressings and a sterile dressing was applied. The pat ient tolerated procedure well. There were no complications. Estimated blood loss was approximately 20 mL and the patient was transported in stable condition to the recovery room. Dictated By: INDRA LEARY/IRLANDA Conf#: [id number] DID#: [id number]
--- NOTE | 2019-04-09 17:34 | RADRPT ---
Vent Rate: 110 bpm RR Interval: 544 msec [place] Interval: 147 msec QRS Duration: 83 msec QT Interval: 348 msec QTC Interval: 472 msec P-R-T [place]: 58 - 63 - -8 degrees Sinus tachycardia...rate> 99 Probable left atrial enlargement...P >50mS, <-0.10mV V1 Electronically Signed By: Winston Hurd
== END 2019-04-06 13:27 | disposition home or self-care (01) ==
LOC: SDS 06:59 → REC 11:48
PROVIDERS: ADMIT Surgery Surgical Oncology; ATTEND Surgery Surgical Oncology
DX: T81.49XA Infection following a procedure, other surgical site, initial encounter (principal); L02.213 Cutaneous abscess of chest wall; I10 Essential (primary) hypertension; E11.9 Type 2 diabetes mellitus without complications; Y83.8 Other surgical procedures as the cause of abnormal reaction of the patient, or of later complication, without mention of misadventure at the time of the procedure
CPT/HCPCS: 10060; 82550; 82553; 84484; 87070; 87075; 87102; 93005; J0360; J1170; J2250; J2370; Z7500; Z7512; Z7610; G0378